=== PATIENT | female | born 1950 | race Caucasian/White ===

== ENCOUNTER 2024-05-09 09:46 | Emergency (ER) | payer MEDICARE ==
[~2024-05-09] VITALS: Ht 167.6 cm; Wt 73.4 kg
[~2024-05-09 09:46] MED LIST: CHOL200013 PO; HYDR-3686 PO; MULT-620 PO; RED600CA2 PO; RIVA20TA PO
[2024-05-09 09:59] VITALS: TEMP 98
[2024-05-09 10:12] LABS: BASOPHILS % (AUTO) 0.4 % (0-1); EOSINOPHILS # (AUTO) 0.1 X10'3 (0-0.9); EOSINOPHILS % (AUTO) 2.2 % (0-6); HEMATOCRIT 37.5 % (35.0-45.0); HEMOGLOBIN 12.8 g/dl (12.0-16.0); LYMPHOCYTES # (AUTO) 1.2 X10'3 (1.1-4.8); LYMPHOCYTES % (AUTO) 22.1 % (21-51); MEAN CORPUSCULAR HEMOGLOBIN 31.9 PG (27.0-31.0); MEAN CORPUSCULAR VOLUME 93.9 FL (78-98); MEAN PLATELET VOLUME 7.5 FL (7.4-10.4); MONOCYTES # (AUTO) 0.6 X10'3 (0-0.9); MONOCYTES % (AUTO) 10.2 % (2-12); NEUTROPHILS # (AUTO) 3.6 X10'3 (1.8-7.7); NEUTROPHILS % (AUTO) 65.1 % (42-75); PLATELET COUNT 229 X10'3 (140-440); RED CELL DISTRIBUTION WIDTH 14.1 % (11.5-14.5); WHITE BLOOD COUNT 5.5 X10'3 (4.5-11.0)
[2024-05-09 10:28] LABS: ALBUMIN 3.4 G/DL (3.4-5.0); ANION GAP 8 (8-16); BLOOD UREA NITROGEN 10 MG/DL (7-18); BUN/CREATININE RATIO 12.2 (10.0-20.0); CHLORIDE 106 MMOL/L (99-107); CREATININE 0.82 MG/DL (0.40-0.90); GLUCOSE 118 MG/DL (70-104); POTASSIUM 3.7 MMOL/L (3.5-5.1); PRO BRAIN NATRIURETIC PEPTIDE 2155 PG/ML (0-125); SODIUM 142 MMOL/L (135-145); TOTAL CARBON DIOXIDE 28.1 MMOL/L (24-32); eCRCL 58 ML/MIN; eGFR 69 ML/MIN
[2024-05-09 10:51] LABS: ETHANOL < 10 MG/DL (<10); MAGNESIUM 1.8 MG/DL (1.5-2.4)
[2024-05-09 10:53] LABS: APTT 33 SECONDS (22-32); INR 1.3 INR; PROTHROMBIN TIME 13.5 SECONDS (9.0-12.0)
[2024-05-09 11:19] LABS: URINE AMPHETAMINE SCREEN NEGATIVE (Neg); URINE BARBITUATE SCREEN NEGATIVE (Neg); URINE BENZODIAZEPINES SCREEN NEGATIVE (Neg); URINE CANNABINOID SCREEN NEGATIVE (Neg); URINE COCAINE SCREEN NEGATIVE (Neg); URINE METHADONE SCREEN NEGATIVE (Neg); URINE OPIATE SCREEN NEGATIVE (Neg); URINE PHENCYCLIDINE SCREEN NEGATIVE (Neg)
[2024-05-09] MEDS: normal saline 1000ML IV soln IVB ONE (12:18)
[2024-05-09] MEDS ORDERED: LOP25T PO (13:15)
[2024-05-09] MEDS: metoprolol tartrate 50mg tablet PO ONE (13:23)
[2024-05-09 13:43] VITALS: BP 119/92; PULSE 78; RESP 16; O2SAT 96
== END 2024-05-09 13:52 | disposition home or self-care (01) ==
LOC: ER 09:47
DX: I48.0 Paroxysmal atrial fibrillation (principal); R00.2 Palpitations; R79.89 Other specified abnormal findings of blood chemistry; Z79.899 Other long term (current) drug therapy
CPT/HCPCS: 36415; 71045; 80048; 80305; 83735; 83880; 84484; 85025; 85610; 85730; 93005; 96360; 99285; G0480; J7030; 80320

== ENCOUNTER 2024-06-22 11:05 | Day surgery (SDC) | payer MEDICARE ==
[2024-06-22] VITALS (12 sets, daily range): BP systolic 105–137; BP diastolic 63–88; PULSE 50–62; RESP 16; TEMP 97.7; O2SAT 95–100
[~2024-06-22] VITALS: Ht 167.6 cm; Wt 71.2 kg
[~2024-06-22 11:05] MED LIST changes: +LOP25T PO
[2024-06-22] MEDS ORDERED: fentaNYL/PF 50MCG/1 ML 2ML syringe IV ONE (11:40)
[2024-06-22] MEDS ORDERED: MIDAZolam 1mg/ml 10ml vial IV ONE (11:40)
[2024-06-22 12:02] LABS: BASOPHILS % (AUTO) 0.6 % (0-1); EOSINOPHILS # (AUTO) 0.1 X10'3 (0-0.9); EOSINOPHILS % (AUTO) 1.6 % (0-6); HEMATOCRIT 41.8 % (35.0-45.0); HEMOGLOBIN 14.2 g/dl (12.0-16.0); LYMPHOCYTES # (AUTO) 1.3 X10'3 (1.1-4.8); LYMPHOCYTES % (AUTO) 24.4 % (21-51); MEAN CORPUSCULAR HEMOGLOBIN 30.9 PG (27.0-31.0); MEAN CORPUSCULAR VOLUME 90.7 FL (78-98); MEAN PLATELET VOLUME 7.1 FL (7.4-10.4); MONOCYTES # (AUTO) 0.4 X10'3 (0-0.9); MONOCYTES % (AUTO) 7.2 % (2-12); NEUTROPHILS # (AUTO) 3.7 X10'3 (1.8-7.7); NEUTROPHILS % (AUTO) 66.2 % (42-75); PLATELET COUNT 310 X10'3 (140-440); RED BLOOD COUNT 4.61 X10'6 (4.20-5.60); RED CELL DISTRIBUTION WIDTH 13.7 % (11.5-14.5); WHITE BLOOD COUNT 5.5 X10'3 (4.5-11.0)
[2024-06-22 12:09] LABS: ALBUMIN 3.9 G/DL (3.4-5.0); ANION GAP 8 (8-16); BLOOD UREA NITROGEN 17 MG/DL (7-18); BUN/CREATININE RATIO 17.5 (10.0-20.0); CALCIUM 8.6 MG/DL (8.5-10.1); CHLORIDE 102 MMOL/L (99-107); CREATININE 0.97 MG/DL (0.40-0.90); GLUCOSE 105 MG/DL (70-104); SODIUM 139 MMOL/L (135-145); TOTAL CARBON DIOXIDE 29.4 MMOL/L (24-32); eCRCL 49 ML/MIN; eGFR 56 ML/MIN
[2024-06-22 12:22] LABS: APTT 32 SECONDS (22-32); INR 1.1 INR; PROTHROMBIN TIME 11.9 SECONDS (9.0-12.0)
[2024-06-22] MEDS ORDERED: ASPI-1265 PO (14:38)
[2024-06-22] MEDS ORDERED: CLOP75TA33 PO (14:38)
== END 2024-06-22 15:05 | disposition home or self-care (01) ==
LOC: SSTAY O 11:05
PROVIDERS: ATTEND Student in an Organized Health Care Education/Training Program
DX: I48.91 Unspecified atrial fibrillation (principal); I10 Essential (primary) hypertension; E78.00 Pure hypercholesterolemia, unspecified; Z79.01 Long term (current) use of anticoagulants; Z79.899 Other long term (current) drug therapy
CPT/HCPCS: 36415; 80048; 85025; 85610; 85730; 93325; C8925; J7030; 93312